=== PATIENT | female | born 1985 | race Hispanic/Latino ===

== ENCOUNTER 2017-12-07 03:48 | Emergency (ER) | payer SELFPAY ==
[2017-12-07] MEDS ORDERED: MAG HYDROX/AL HYDROX/SIMETH ES 30 ML SUSP UDCUP ONE (04:07)
[2017-12-07] MEDS ORDERED: LIDOCAINE HCL 2% VISCOUS 15 ML UDCUP ONE (04:07)
[2017-12-07] MEDS ORDERED: ACETAMINOPHEN-CODEINE ELIXIR 5 ML UDCUP ONE (04:08)
[2017-12-07] MEDS ORDERED: ONDANSETRON ODT 4 MG TAB ONE (04:08)
== END 2017-12-07 04:58 | disposition home or self-care (01) ==
LOC: EDH 03:48
DX: K80.20 Calculus of gallbladder without cholecystitis without obstruction (principal)

== ENCOUNTER 2018-01-05 16:56 | Emergency (ER) | payer SELFPAY | END 2018-01-05 17:54 | disposition home or self-care (01) | LOC: EDH 16:56 | DX: K80.20 Calculus of gallbladder without cholecystitis without obstruction (principal); M79.621 Pain in right upper arm; Z98.890 Other specified postprocedural states; Z72.0 Tobacco use; Z79.899 Other long term (current) drug therapy | CPT/HCPCS: 99281 ==

== ENCOUNTER 2020-10-04 07:40 | Emergency (ER) | payer OTHER | END 2020-10-04 09:54 | LOC: EDH 07:40 | DX: Z02.89 Encounter for other administrative examinations (principal); J45.909 Unspecified asthma, uncomplicated; Z72.0 Tobacco use ==